=== PATIENT | female | born 1965 | race Caucasian/White ===

== ENCOUNTER → 2018-01-15 | Outpatient (CLI) | payer OTHER ==
--- NOTE | 2018-01-16 09:08 | EEG PRO FEE REPORT ---
EEG INTERPRETATION PATIENT NAME: LAURO GIANG ROOM#: ORDER#: [id number] DATE OF STUDY: 01/15/2018 : 1965 REFERRING MD: FERNY DRISCOLL M.D. MEDICATIONS: Wellbutrin, Jalra, allergy pills History This is a 52 year old right handed woman with a history of asthma who had seizures following a cyst removal {near F3} in November. This EEG was requested for seizures. EEG Interpretation This EEG was recorded in the awake state only. The awake EEG is characterized by a well organized background with poorly noted but reactive posterior rhythm of 10 Hz. Photic stimulation resulted in a good driving response. There were no epileptiform abnormalities noted. The EKG showed a regular rhythm. EEG Impression This EEG is within normal limits in the awake state only. INTERPRETING PHYSICIAN: COLTEN LOREDO M.D. /: [id number] TT: [id number] ID: [id number] /: [id number] TD: 1603 JOB: [id number] cc:Chivo SALINAS M.D. > MTDD
== END ==
LOC: NEURO 08:05
PROVIDERS: ATTEND Pediatrics
DX: G40.409 Other generalized epilepsy and epileptic syndromes, not intractable, without status epilepticus (principal)
CPT/HCPCS: 95819